=== PATIENT | male | born 1995 | race Caucasian/White ===

== ENCOUNTER → 2025-07-28 09:07 | Outpatient (REF) | payer BC, SELFPAY ==
[2025-07-28 10:19] LABS: Hematocrit 43.8 % (39.0-52.0); Hemoglobin 14.8 g/dL (13.0-18.0); Mean Corp Hgb Conc. 33.8 g/dL (33.0-37.0); Mean Corpuscular Volume 88.0 fL (80.0-94.0); Nucleated Red Blood Cells % 0 % (-); Platelet Count 282 10^3/uL (130-400); Red Cell Dist. Width 12.3 % (11.5-14.5)
[2025-07-28 10:23] LABS: Urine Character Clear (Clear)
[2025-07-28 10:57] LABS: ALT (SGPT) 31 U/L (0-50); AST (SGOT) 29 U/L (17-59); Albumin 4.6 g/dl (3.5-5.0); Alkaline Phosphatase 78 U/L (38-126); Blood Urea Nitrogen 15 mg/dl (9-20); Calcium 9.3 mg/dl (8.4-10.2); Carbon Dioxide 31 mmol/L (22-30); Chloride 104 mmol/L (98-107); Glucose 85 mg/dl (70-99); HDL Cholesterol 44 mg/dl; LDL Cholesterol, Calculated 115 mg/dl; Potassium 5.0 mmol/L (3.5-5.1); Sodium 142 mmol/L (135-145); Total Protein 7.3 g/dl (6.3-8.2); Very Low Density Lipoprotein 7 mg/dl (0-30); eGFR > 60.00
== END ==
LOC: REG 09:07
PROVIDERS: ATTENDING PHYSICIAN Emergency Medicine; FAMILY PHYSICIAN Family Medicine
DX: Z00.00 Encounter for general adult medical examination without abnormal findings (principal)
CPT/HCPCS: 36415; 80053; 80061; 81003; 84443; 85025